=== PATIENT | female | born 1965 | race Caucasian/White ===

== ENCOUNTER → 2020-08-07 14:51 | Outpatient (CLI) | payer BC, SELFPAY ==
--- NOTE | ~2020-08-07 | MM_ITS ---
EXAMINATION: MM screening dyllan BI w isaura HISTORY: Screening TECHNIQUE: Craniocaudal and mediolateral oblique 3-D tomosynthesis images were obtained and synthetic 2-D images were generated. CAD analysis was submitted and interpreted. COMPARISON: Comparison to multiple prior studies sequentially, with oldest reviewed study dated 06/2015. BREAST PARENCHYMAL COMPOSITION: The breasts are heterogeneously dense, which may obscure small masses . FINDINGS: The right breast is stable without evidence for malignancy. There are multiple developing m asses in the left breast which are partially obscured by fibroglandular tissue. IMPRESSION: 1. Multiple developing left breast. 2. Additional mammographic views and possible breast ultrasound are recommended. BI-RADS Category 0: Incomplete: Needs additional imaging evaluation. Reviewed, dictated and finalized at location A. IMPRESSION: 1. Multiple developing left breast. 2. Additional mammographic views and possible breast ultrasound are recommended . BI-RADS Category 0: Incomplete: Needs additional imaging evaluation.
== END ==
PROVIDERS: Visit Provider Nurse Practitioner
DX: Z12.31 Encounter for screening mammogram for malignant neoplasm of breast (principal)
CPT/HCPCS: 77063; 77067

== ENCOUNTER → 2020-10-03 14:24 | Outpatient (CLI) | payer BC, SELFPAY ==
--- NOTE | ~2020-10-03 | MMUS_ITS ---
EXAMINATION: MM diagnostic dyllan LT w isaura, US breast LT complete HISTORY: Follow-up left breast masses TECHNIQUE: Additional 3-D tomosynthesis images of the left breast were performed and synthetic 2-D im ages were generated. CAD analysis was submitted and interpreted. High resolution complete left breast ultrasound was performed. COMPARISON: 08/07/2020 BREAST PARENCHYMAL COMPOSITION: The breasts are extremely dense, which lowers the sensitivity of mamm ography. FINDINGS: MAMMOGRAPHIC FINDINGS: There are multiple masses throughout the left breast. There is a spiculated density in the upper oute r quadrant of the left breast posteriorly adjacent to the pectoralis muscle. This mass measures appro ximately 9 mm maximum dimension. The remainder of the masses have a relatively circumscribed appearan ce would not obscured by surrounding tissue. There are no suspicious calcifications. ULTRASOUND: Left breast ultrasound: At 1:00, 9 cm from the nipple, there is an irregular shaped hypoechoic mass with antiparallel configu ration and posterior shadowing measuring 8 x 6 x 5 mm. No significant internal vascularity. There are multiple additional cyst scattered throughout the left breast, largest at 12:00, 1 cm from the nippl e measuring 2.9 cm greatest dimension. IMPRESSION: 1. Irregular shaped hypoechoic left breast mass at 1:00, 9 cm from the nipple corresponding to a spic ulated nodule seen on mammography. 2. Ultrasound-guided left breast biopsy recommended. BI-RADS category 4, suspicious findings. Reviewed, dictated and finalized at location A. RENTAL AGENT IMPRESSION: 1. Irregular shaped hypoechoic left breast mass at 1:00, 9 cm from the nipple c orresponding to a spiculated nodule seen on mammography. 2. Ultrasound-guided left breast biopsy recommended. BI-RADS category 4, suspicious findings.
== END ==
PROVIDERS: Visit Provider Obstetrics & Gynecology Gynecology
DX: R92.8 Other abnormal and inconclusive findings on diagnostic imaging of breast (principal)
CPT/HCPCS: 76641; 77061; 77065; G0279

== ENCOUNTER → 2021-02-13 12:17 | Outpatient (CLI) | payer BC, SELFPAY ==
--- NOTE | ~2021-02-13 | DEXA_ITS ---
Bone Density Report Name: Kylie Harmon Age: 55 Sex: Female Ethnicity: White Date of : 1965 Indication: monitoring treatment; parental hip fracture; cancer; postmenopausal Referring Provider: IAM MEJIA Study: Bone densitometry was performed. Exam Date: February 13, 2021 Accession number: [id number] Bone Density: Region BMD T-score Z-score Classification AP Spine (L1-L4) 1.053 0.1 1.2 Normal Femoral Neck (Left) 0.669 -1.6 -0.5 Osteopenia Total Hip (Left) 0.959 0.1 0.9 Normal Femoral Neck (Right) 0.664 -1.7 -0.5 Osteopenia Total Hip (Right) 0.952 0.1 0.8 Normal Total Hip Mean 0.956 0.1 0.9 Normal World Health Organization criteria for BMD impression classify patients as: Normal (T-score at or above -1.0), Osteopenia (T-score between -1.0 and -2.5), or Osteoporosis (T-score at or below -2.5). 10-year Fracture Risk: FRAX not reported because: Treated for osteoporosis Previous Exams: Region Exam Age BMD T-score BMD Change BMD Change Date g/cm2 vs Baseline vs Previous AP Spine(L1-L4) 02/13/2021 55 1.053 0.1 0.051* 0.037* 01/23/2018 52 1.016 -0.3 0.014 -0.016 06/05/2012 46 1.031 -0.1 0.029* 0.061* 03/16/2010 44 0.970 -0.7 -0.032* -0.032* 11/20/2007 42 1.002 -0.4 Total Hip(Left) 02/13/2021 55 0.959 0.1 0.006 -0.017 01/23/2018 52 0.976 0.3 0.023 0.039* 06/05/2012 46 0.937 0.0 -0.016 0.010 03/16/2010 44 0.927 -0.1 -0.026 -0.026 11/20/2007 42 0.953 0.1 Total Hip(Right) 02/13/2021 55 0.952 0.1 0.011 -0.059 01/23/2018 52 1.011 0.6 0.070* 0.057* 06/05/2012 46 0.953 0.1 0.013 0.039 03/16/2010 44 0.914 -0.2 -0.027 -0.027 11/20/2007 42 0.941 0.0 *Denotes significance at 95% confidence level, LSC for AP Spine = 0.022 g/cm2, LSC for Total Hip = 0.027 g/cm2 Clinical Information Provided by Patient: Parent has had a hip fracture Is being treated for osteoporosis Has used the following medications: HRT (i.e. estrogen/hormone therapy), Vitamin D, Calcium Has the following medical conditions: Cancer Patient maximum height was 63.0 Menopause Age: 35 Does not regularly consume dairy products Onset of menses at age 13 Number of children 2 Impressi
== END ==
PROVIDERS: Visit Provider Obstetrics & Gynecology Gynecology
DX: Z78.0 Asymptomatic menopausal state (principal); M85.852 Other specified disorders of bone density and structure, left thigh; M85.851 Other specified disorders of bone density and structure, right thigh
CPT/HCPCS: 77080

== ENCOUNTER 2021-09-03 01:25 | Day surgery (SDC) | payer BC, SELFPAY ==
[2021-08-23 11:02] VITALS: BMI 25.7
[2021-09-03 06:43] VITALS: BP 109/70; PULSE 78; RESP 16; TEMP 36.1; O2SAT 99
[2021-09-03] MEDS: LACTATED RINGERS 1,000 ML 150 ML IV CONT (06:52)
--- NOTE | 2021-09-03 07:23 | WPDGICN ---
Assessment and Plan Assessment and plan (1) Encounter for screening colonoscopy: Code(s): Z12.11 - Encounter for screening for malignant neoplasm of colon Status: Acute Assessment and Plan: Patient presents for screening colonoscopy. sHe appears to be at average risk for colon polyps. GI Consult Note Consult date/time: 09/03/21 07:23 HPI: Kylie Harmon is a 56 year old female Presents for screening colonoscopy. She has never had a prior colonoscopy. Patient reports that her current weight appetite and bowel movements are normal. She denies abdominal pain. She has had no bleeding. Family history is noncontributory. Patient reports that in November she had surgery for breast carcinoma and has subsequently undergone chemotherapy. She currently follows with oncology service. Review of Systems Review of Systems: All systems reviewed & are unremarkable except as noted in HPI and below PMFSH Family History Family History Father Family history of lung cancer Diabetes mellitus Heart disease Grandparent Family history of lung cancer Alzheimer disease Mother Depression Hearing loss Seizure Sibling Depression Arthritis Social History Social History Smoking status: Never smoker Alcohol intake: never Substance use: never Substance use type: does not use Living arrangements: with family Spiritual care concerns: No Meds Home Medications and Allergies Home Medications Medication Instructions Recorded Confirmed Type anastrozole 1 mg tablet 1 mg PO DAILY 03/06/21 09/03/21 History calcium carbonate-vitamin D3 1 tablet PO TID 08/23/21 09/03/21 History [Caltrate 600 plus D] cholecalciferol (vitamin D3) 25 mcg PO DAILY 08/23/21 09/03/21 History [Vitamin D3] Allergies Allergy/AdvReac Type Severity Reaction Status Date / Time No Known Allergies Allergy Verified 09/03/21 06:41 Vital Signs Vital Signs - 24 hr 09/03/21 06:43 Temperature 97.0 F L Pulse Rate 78 Respiratory Rate 16 Blood Pressure 109/70 Pulse Oximetry 99 Exam Narrative: Physical exam reveals patient to be alert. Vital signs stable. HEENT exam is unremarkable. Patient is anicteric. Lungs are clear to auscultation and percussion. Heart is without murmur or extra sounds. Abdominal exam bowel sounds present soft nontender with no organomegaly. Digital external rectal exam is normal.
--- NOTE | 2021-09-03 07:32 | P.PNAN_ITS ---
Anes - Initial Pre Proc Eval Procedure: Operation Date: 09/03/21 08:00 Proposed Procedures p Screening Colonoscopy - David Bolaños MD Date/Time: 09/03/21 07:32 Surgeon: David Bolaños MD Pre Op Diagnosis: neoplasm screening Patient Data Age: 56 Gender: F Height: 1.6 m Weight: 63.8 kg Last Vital Signs Temp 36.1 C L 09/03/21 06:43 Pulse 78 09/03/21 06:43 Resp 16 09/03/21 06:43 BP 109/70 09/03/21 06:43 Pulse Ox 99 09/03/21 06:43 Allergies Allergy/AdvReac Type Severity Reaction Status Date / Time No Known Allergies Allergy Verified 09/03/21 06:41 Home Medications Medication Instructions Recorded Confirmed Type anastrozole 1 mg tablet 1 mg PO DAILY 03/06/21 09/03/21 History calcium carbonate-vitamin D3 1 tablet PO TID 08/23/21 09/03/21 History [Caltrate 600 plus D] cholecalciferol (vitamin D3) 25 mcg PO DAILY 08/23/21 09/03/21 History [Vitamin D3] Patient hx anesthesia problems: none Family hx anesthesia problems: none Results Review: All pre-operative results and documents have been reviewed as part of the pre-operative evaluation. [facility] Family History Family History Father Family history of lung cancer Diabetes mellitus Heart disease Grandparent Family history of lung cancer Alzheimer disease Mother Depression Hearing loss Seizure Sibling Depression Arthritis Social History Social History Smoking status: Never smoker Alcohol intake: never Substance use: never Substance use type: does not use Living arrangements: with family Spiritual care concerns: No Anes - Eval Final PreProcedure Day of Procedure 09/03/21 07:32 Patient weight: normal Heart: regular rate and rhythm Lungs: clear to auscultation Airway: Mallampati scale class II Neurological: alert and oriented Last oral intake: >/= 8 hours ASA classification: III Anesthetic plan: proceed Anesthesia type and monitoring: general GIVS and standard monitoring Results Review: All pre-operative results and documents have been reviewed as part of the pre-operative evaluation. Informed Consent: The patient's anesthetic plan and its attendant risks and benefits were discussed with the patient/family/POA. Questions were solicited and answers provided to the satisfaction of the patient/family/POA.
[2021-09-03 08:19] VITALS: BP 92/56; PULSE 74; RESP 16; O2SAT 97
[2021-09-03 08:29] VITALS: BP 105/46; PULSE 72; RESP 16; O2SAT 97
[2021-09-03 08:38] VITALS: BP 86/56; PULSE 72; RESP 16; O2SAT 98
== END 2021-09-03 08:47 | disposition home or self-care (01) ==
PROVIDERS: PCP Family Medicine; Visit Provider Internal Medicine Gastroenterology
PROC: 0DJD8ZZ Inspection of Lower Intestinal Tract, Via Natural or Artificial Opening Endoscopic (ICD-10-PCS; CPT 45378; principal; 2021-09-03 08:00)
DX: Z12.11 Encounter for screening for malignant neoplasm of colon (principal); K64.8 Other hemorrhoids; C50.919 Malignant neoplasm of unspecified site of unspecified female breast; Z92.21 Personal history of antineoplastic chemotherapy
CPT/HCPCS: 45378; J2704; J7120

== ENCOUNTER 2022-12-14 09:00 | Outpatient (CLI) | payer BC, SELFPAY ==
[2022-12-14 09:14] LABS: Basophils Percent Auto 0.2 % (0.2-1.2); Eosinophils Absolute Auto 0.1 K/mm3 (0-0.3); Eosinophils Percent Auto 1.7 % (0-4.4); Hematocrit 44.7 % (37.0-47.0); Hemoglobin 14.3 g/dL (12.0-15.0); Immature Granulocyte Absolute 0.04 K/mm3 (0.00-0.031); Immature Granulocyte Percent A 0.5 % (0-0.5); Mean Corpuscular Volume 93.9 fl (80-100); Mean Platelet Volume 10.5 fl (7.4-10.4); Monocytes Absolute Auto 0.8 K/mm3 (0.1-0.6); Monocytes Percent Auto 10.2 % (2.6-8.5); Neutrophils Percent Auto 62.4 % (45.5-73.1); Platelet Count Result 251 k/mm3 (150-375); Red Blood Count 4.76 M/mm3 (4.2-5.4); Red Cell Distribution Width 12.7 % (11.5-14.5)
[2022-12-14 09:27] LABS: Alanine Aminotransferase 38 U/L (6-35); Albumin Level 4.6 g/dL (3.5-5.1); Alkaline Phosphatase 79 U/L (38-126); Anion Gap 4 mmol/L (8-16); Aspartate Amino Transferase 27 U/L (14-36); Bilirubin,Total 0.5 mg/dL (0.2-1.3); Blood Urea Nitrogen 19 mg/dL (7-17); Carbon Dioxide 30 mmol/L (22-30); Chloride 103 mmol/L (98-107); Cholesterol 192 mg/dL (0-200); Estimated Glomerular Filt Rate > 60; Glucose 101 mg/dL (65-110); HDL Direct 37 mg/dL; Potassium 4.3 mmol/L (3.4-5.0); Sodium 137 mmol/L (137-145); Triglycerides 147 mg/dL (<150)
[2022-12-14 09:38] LABS: LDL Cholesterol Direct 104 mg/dL
[2022-12-14 10:34] LABS: Hemoglobin A1C 5.8 % (<5.7)
== END 2022-12-14 09:01 | disposition home or self-care (01) ==
PROVIDERS: PCP Family Medicine; Visit Provider Family Medicine
DX: Z00.00 Encounter for general adult medical examination without abnormal findings (principal); Z79.899 Other long term (current) drug therapy; R73.03 Prediabetes; R73.01 Impaired fasting glucose; Z78.0 Asymptomatic menopausal state; C50.919 Malignant neoplasm of unspecified site of unspecified female breast
CPT/HCPCS: 36415; 80053; 80061; 83036; 84443; 85025

== ENCOUNTER → 2023-05-21 12:15 | Outpatient (CLI) | payer BC, SELFPAY ==
--- NOTE | ~2023-05-21 | DEXA_ITS ---
Bone Density Report Name: JUAN PARK Age: 57 Sex: Female Ethnicity: White Date of : 1965 Indication: monitoring treatment; parental hip fracture; cancer; postmenopausal Referring Provider: ELIZABETH BARROS Study: Bone densitometry was performed. Exam Date: May 21, 2023 Accession number: [id number] Bone Density: Region BMD T-score Z-score Classification AP Spine (L1-L4) 1.099 0.5 1.8 Normal Femoral Neck (Left) 0.660 -1.7 -0.5 Osteopenia Total Hip (Left) 0.923 -0.2 0.7 Normal Femoral Neck (Right) 0.682 -1.5 -0.3 Osteopenia Total Hip (Right) 0.933 -0.1 0.8 Normal Total Hip Mean 0.928 -0.2 0.8 Normal World Health Organization criteria for BMD impression classify patients as: Normal (T-score at or above -1.0), Osteopenia (T-score between -1.0 and -2.5), or Osteoporosis (T-score at or below -2.5). 10-year Fracture Risk: FRAX not reported because: Treated for osteoporosis Previous Exams: Region Exam Age BMD T-score BMD Change BMD Change Date g/cm2 vs Baseline vs Previous AP Spine(L1-L4) 05/21/2023 57 1.099 0.5 0.097* 0.046* 02/13/2021 55 1.053 0.1 0.051* 0.037* 01/23/2018 52 1.016 -0.3 0.014 -0.016 06/05/2012 46 1.031 -0.1 0.029* 0.061* 03/16/2010 44 0.970 -0.7 -0.032* -0.032* 11/20/2007 42 1.002 -0.4 Total Hip(Left) 05/21/2023 57 0.923 -0.2 -0.030* -0.036* 02/13/2021 55 0.959 0.1 0.006 -0.017 01/23/2018 52 0.976 0.3 0.023 0.039* 06/05/2012 46 0.937 0.0 -0.016 0.010 03/16/2010 44 0.927 -0.1 -0.026 -0.026 11/20/2007 42 0.953 0.1 Total Hip(Right) 05/21/2023 57 0.933 -0.1 -0.008 -0.019 02/13/2021 55 0.952 0.1 0.011 -0.059 01/23/2018 52 1.011 0.6 0.070* 0.057* 06/05/2012 46 0.953 0.1 0.013 0.039 03/16/2010 44 0.914 -0.2 -0.027 -0.027 11/20/2007 42 0.941 0.0 *Denotes significance at 95% confidence level, LSC for AP Spine = 0.022 g/cm2, LSC for Total Hip = 0.027 g/cm2 Clinical Information Provided by Patient: Parent has had a hip fracture Is being treated for osteoporosis Has used the following medications: Vitamin D, Calcium Has the following medical conditions: Cancer, Hormone rajiv Patient maximum height was 63.0 Menopause Age: 35 No regu
== END ==
DX: C50.412 Malignant neoplasm of upper-outer quadrant of left female breast (principal); Z17.0 Estrogen receptor positive status [ER+]; Z79.899 Other long term (current) drug therapy; Z79.811 Long term (current) use of aromatase inhibitors; M85.852 Other specified disorders of bone density and structure, left thigh; M85.851 Other specified disorders of bone density and structure, right thigh
CPT/HCPCS: 77080

== ENCOUNTER 2025-02-15 07:57 | Outpatient (CLI) | payer BC, SELFPAY ==
--- OUTSIDE RECORDS SUMMARY | 2025-02-15 08:06 | XMS_ITS | Clinical Summary ---
Author Organization [facility] Address [address] [place] [address] Care Team Providers Care Investigative Shopper Name Role Phone Unavailable Primary Care Provider Unavailabl e Source Comments [facility],non-owned Affiliates and Associated Physician Practices is amultiple site organization consisting of ambulatory clinics and hospital sitesin [place], [place], [place] and [place]. This disclosure is being madepursuant to the Care Everywhere program and may not contain all information available regarding this patient. Last updated 18.[facility] Allergies No known active allergies Medications * Be aware that medications may not be up to date on this document. Alwaysverify current medications with the patient. anastrozole (ARIMIDEX) 1 MG tablet 1 Active Calcium Carb-Cholecalcif maricel (CALCIUM CARBONATE-VITAMI N D3) 600-400 MG-UNIT Take 1 (one) tablet by mouth 2 times daily Active bupivacaine (MARCAINE) 0.5 % injectionIndicat ions:Chronic interstitial cystitis Instill 30 cc into bladder once. [facility] [id number] 30 mL 2 Active ID Now COVID-19 KIT TEST DIRECTED TODAY 2 Active hydrOXYzine HCl (Atarax) 25 MG tablet Take 1 (one) tablet by mouth at bedtime PATIENT NEEDS AN APPOINTMENT FOR FUTURE REFILLS 90 tablet 1 4 Active Active Problems No known active problems Immunizations Immunization Administration Dates Next Due Covid Pfizer primary monoval ent 12+ yr 0.3mL Purple cap 02/08/2021,01/11/2021 TDAP (7yrs+) 03/06/2021 Zoster Hzv Vacc Recombinant Inj Im 05/28/2021 Family History Medical History Relation Name Comments Diabetes; unknown type Father Depression Mother Relation Name Status Comments Father Mother Alive Social History Tobacco Use Types Packs/Day Years Used Date Smoking Tobacco: Never Smokeless Tobacco: Never Tobacco Cessation:Counseling Given: Not Answered Alcohol Use Standard Drinks/Week Comments Yes 0 (1 standard drink = 0.6 oz pur e alcohol) rarely Comments No Sex and Gender Information Value Date Recorded Sex Assigned at Not on file Legal Sex Female 5:24 PM CDT Gender Identity Not on file Sexual Orientation Not on file Last Filed Vital Signs Vital Sign Reading Time Taken Comments Blood Pressure 120/72 01/09/2023 3:35 PM CDT Pulse 105 05/29/2018 5:52 PM CDT Temperature 35.7 C (96.2 F) 01/09/2023 3:35 PM CDT Respiratory Rate 20 05/29/2018 5:52 PM CDT Oxygen Saturation 98% 05/29/2018 5:52 PM CDT Inhaled Oxygen Concentration - - Weight 73.5 kg (162 lb) 01/09/2023 3:35 PM CDT Height 160 cm (5' 3 ) 01/09/2023 3:35 PM CDT Body Mass Index 28.7 01/09/2023 3:35 PM CDT Plan of Treatment Health Maintenance Due Date Last Done Comments COLOGUARD (AGES 45-75) - COLON CA SCREENING 1965 COLON MONITORING 1965 COLONOSCOPY - COLON CA SCREENING 1964 CT COLONOGRAPHY - COLON CA SCREENING 1965 Colorectal Cancer Screening 1965 FIT - COLON CA SCREENING 1965 FLEX SIG - COLON CA SCREENING 1965 LIPID TESTING 1965 PAP SMEAR 1964 HIV SCREENING 1979 HEPATITIS C SCREENING 07/10/1982 PNEUMOCOCCAL VACCINE 50+ (1 of 1 - PCV) 2014 ZOSTER VACCINE (2 of 2) 07/23/2021 05/28/2021 SCREENING FOR DIABETES 09/18/2021 MAMMOGRAM 06/08/2023 06/08/2021 (Done Outside Per Report) COVID-19 VACCINE (3 - 2023-2 5 season) 2024 02/08/2021, 01/11/2021 DEPRESSION SCREENING 10/27/2024 INFLUENZA VACCINE (Season Ended) 2025 08/08/2022 DTAP/TDAP/TD VACCINES (2 - T d or Tdap) 03/06/2031 03/06/2021 Respiratory Syncytial Virus (RSV) Vaccine Pt: or over 60 yrs (1 - 1-dose 75+ series) 2039 HEPATITIS B VACCINE Aged Out No longe r eligible based on patient's age to complete this topic HIB VACCINE Aged Out No longer eligi ble based on patient's age to complete this topic HPV VACCINE Aged Out No longer eligi ble based on patient's age to complete this topic MENINGOCOCCAL (Group B) VACCINE SHARED DECISION-MAKING Aged Out No longer eligible based on patient's age to complete this topic MENINGOCOCCAL GROUPS A/C/Y/W VACCINE Aged Out No longer eligible based on patient's age to complete this topic Insurance ANTHEM ANTHEM ANTHEM ANTHEM ANTHEM ANTHEM ANTHEM ANTHEM ANTHEM ANTHEM ANTHEM ANTHEM ANTHEM ANTHEM ANTHEM ANTHEM ANTHEM ANTHEM ANTHEM ANTHEM ANTHEM ANTHEM ANTHEM ANTHEM ANTHEM ANTHEM ANTHEM ANTHEM ANTHEM ANTHEM ANTHEM ANTHEM ANTHEM ANTHEM ANTHEM ANTHEM ANTHEM ANTHEM ANTHEM ANTHEM ANTHEM ANTHEM ANTHEM ANTHEM ANTHEM ANTHEM ANTHEM ANTHEM ANTHEM ANTHEM ANTHEM ANTHEM ANTHEM ANTHEM ANTHEM ANTHEM ANTHEM ANTHEM ANTHEM ANTHEM ANTHEM ANTHEM ANTHEM ANTHEM ANTHEM ANTHEM ANTHEM ANTHEM ANTHEM ANTHEM ANTHEM ANTHEM ANTHEM ANTHEM ANTHEM ANTHEM ANTHEM ANTHEM ANTHEM ANTHEM ANTHEM ANTHEM ANTHEM ANTHEM ANTHEM ANTHEM ANTHEM ANTHEM ANTHEM ANTHEM ANTHEM ANTHEM ANTHEM ANTHEM ANTHEM
--- OUTSIDE RECORDS SUMMARY | 2025-02-15 08:06 | XMS_ITS | Clinical Summary ---
Author Organization [facility] Address [address] [place] [address] Care Team Providers Care Glass Cylinder Flanger Name Role Phone Teresa Ann MD Unavailable [phone] Liz Rivera MD Unavailable [phone] Blaze Khan MD PhD Unavailable [phone] Guadalupe Albright MD Unavailable [phone] Genesis John MD Primary Care Provider + Allergies No known active allergies Medications cholecalciferol (VITAMIN D-3) 25 mcg (1,000 unit) tablet Take 1 tablet (1,000 Units total) by mouth every morning Active calcium carbonate/vitam in D3 (CALTRATE 600 PLUS D ORAL) Take 1 tablet by mouth 2 (two) times a day Active hydrOXYzine (ATARAX) 25 mg tablet 02/09/2023 Active anastrozole (ARIMIDEX) 1 mg tabletIndicatio ns:Malignant neoplasm of upper-outer quadrant of left breast in female, estrogen receptor positive (HCC),MCC (current) use of aromatase inhibitors TAKE 1 TABLET BY MOUTH EVERY DAY 90 tablet 3 09/15/2024 Active famotidine (PEPCID) 20 mg tablet Take 1 tablet (20 mg total) by mouth daily 12/14/2024 Active metoprolol tartrate (LOPRESSOR) 25 mg immediate release tablet Take 0.5 tablets (12.5 mg total) by mouth 2 (two) times a day 01/13/2025 Active Active Problems Problem Noted Date Diagnosed Date Lymphedema - Left Breast 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 [address] [place] [address] 8 [place] [address] Liz Rivera MD Malignant neoplasm of upper-outer quadrant of left breast in female, estrogen receptor positive (HCC) (Primary Dx) 02/10/2025 2:30 PM CDT Lab [facility] - Lab Collection [facility] Floor [address] [place] [address] Malignant neoplasm of upper-outer quadrant of left breast in female, estrogen receptor positive (HCC) 02/10/2025 2:15 PM CDT Lab [facility] [address] [place] [address] Floor 5 [place] [address] Arrived 02/10/[address] [facility] [address] [place] [address] 8 [place] [address] Liz Rivera MD 02/09/[address] [facility] [address] [place] [address] Floor 8 [place] [address] Liz Rivera MD Malignant neoplasm of upper-outer quadrant of left breast in female, estrogen receptor positive (HCC) (Primary Dx) from Last 3 Months Immunizations Immunization Administration Dates Next Due Influenza, Quadrivalent, Radhika l Culture-based MDCK, Preservative Free, Antibiotic Free, Intramuscular 08/08/2022 Pfizer SARS-CoV-2 Monovalent Vaccination (12+ Yrs) PURPLE 02/08/2021,01/11/2021 Tdap 03/06/2021 ZOSTER Recombinant 05/28/2021,07/28/2020 Surgical History Surgery Date Site/Laterality Comments BREAST BIOPSY 10/31/2020 Left IDC ROTATOR CUFF REPAIR BREAST LUMPECTOMY 10/27/2012 - 10/26/2013 Left DCIS KNEE ARTHROSCOPY Right Meniscus repair DILATION AND CURETTAGE OF UTERUS took out a cyst Medical History Medical History Date Comments Breast cancer (HCC) left Family History Medical History Relation Name Comments Cancer Father Heart attack Father Heart disease Father Lung cancer Father Cancer Maternal Grandfather Lung cancer Maternal Grandfather Relation Name Status Comments Father Maternal Grandfather Mother Alive Social History Tobacco Use Types Packs/Day Years Used Date Smoking Tobacco: Never Smokeless Tobacco: Never Tobacco Cessation:Counseling Given: Not Answered Alcohol Use Standard Drinks/Week Comments Yes 0 (1 standard drink = 0.6 oz pur e alcohol) Very rare Comments No Sex and Gender Information Value Date Recorded Sex Assigned at Not on file Legal Sex Female 9:40 PM TOUR DIRECTOR Gender Identity Female 08/14/2021 11:34 AM CDT Sexual Orientation Straight 08/14/2021 11 :34 AM CDT Obstetrics History Last Filed Vital Signs Vital Sign Reading Time Taken Comments Blood Pressure 102/64 02/10/2025 2:26 PM CDT Pulse 63 02/10/2025 2:26 PM CDT Temperature 36.6 C (97.8 F) 02/10/2025 2:26 PM CDT Respiratory Rate 16 02/10/2025 2:26 PM CDT Oxygen Saturation 97% 02/10/2025 2:26 PM CDT Inhaled Oxygen Concentration - - Weight 66.2 kg (146 lb) 02/10/2025 2:26 PM CDT Height 157.5 cm (5' 2 ) 02/10/2025 2:21 PM CDT Body Mass Index 26.7 02/10/2025 2:21 PM CDT Plan of Treatment Health Maintenance Due Date Last Done Comments Cervical Cancer Screening 1965 Colon Cancer Screening-Colonoscopy 1965 Depression Screening 1965 Hepatitis C Screening 1965 Hepatitis B Screening 1982 Regular Well Visit/Exam 18-64 1982 Pneumococcal vaccine <65 (1 of 2 - PCV) 1983 Covid-19 Vaccine (3 - Pfizer risk series) 03/08/2021 02/08/2021, 01/11/2021 Influenza Vaccine (Season Ended) 2025 08/08/20 Breast Cancer Screening-Mammogram 07/15/2025 07/15/2024, 06/24/2023, 06/18/2022, Additional history exists DTaP/Tdap/Td Vaccine (2 - Td or Tdap) 03/06/2031 03/06/2021 Zoster Vaccine Completed 05/28/2021, 07/28/2020 Procedures Procedure Name Priority Date/Time Associated Diagnosis Comments EGFR Routine 02/10/2025 2:11 PM CDT Malignant neoplasm of upper-outer quadrant of left breast in female, estrogen receptor positive (HCC) COMPREHENSIVE METABOLIC PANEL Routine 02/10/2025 2:11 PM CDT Malignant neoplasm of upper-outer quadrant of left breast in female, estrogen receptor positive (HCC) VITAMIN D 25 HYDROXY Routine 02/10/2025 2:11 PM CDT Malignant neoplasm of upper-outer quadrant of left breast in female, estrogen receptor positive (HCC) DIAGNOSTIC MAMMOGRAM BILATERAL W TAISHA Schedule Routine, Read Routine (OP Routine) 07/15/2024 9:53 AM CDT Malignant neoplasm of upper-outer quadrant of left breast in female, estrogen receptor positive (HCC) from Last 3 Months or Most Recently Relevant to Health Maintenance Results * eGFR (02/10/2025 2:11 PM CDT) eGFR 74 >=60 mL/min/1. 73 m2 Comment: Interpretive Data Reference Interval Normal >/= 90 mL/min/1.73m2 Mildly decreased* 60 - 89 mL/min/1.73m2 Mildly to moderately decreased 45 - 59 mL/min/1.73m2 Moderately to severely decreased 30 - 44 mL/min/1.73m2 Severely decreased 15 - 29 mL/min/1.73m2 Kidney Failure < 15 mL/min/1.73m2 *Relative to young adult level Estimated glomerular filtration rate is determined by the 2020 CKD-EPI equation recommended by the National Kidney Foundation (A Unifying Approach to GFR Estimation: Recommendations of the NKF-ASK Task Force on Reassessing the Inclusion of Race in Diagnosing Kidney Disease, JASN 202). The CKD-EPI equation should not be used for patients with unstable renal function and has not been validated in children and those over 70. Current interpretive data was last reviewed 2021. Blood 02/10/2025 2:11 PM CDT 02/10/2025 2:15 PM CDT Liz Rivera MD LAB BLOOD ORDERABLES Final Result [facility] [place] [address] * Vitamin D 25 hydroxy (02/10/2025 2:11 PM CDT) Pathologist [facility] Vitamin D 25-OH 59 30 - 80 ng/mL Blood 02/10/2025 2:11 PM CDT 02/10/2025 2:15 PM CDT Liz Rivera MD LAB BLOOD ORDERABLES Final Result Performing Organization Address City/[facility]/ZIP Co de Phone Number [facility] [place] [address] * Comprehensive metabolic panel (02/10/2025 2:11 PM CDT) Pathologist [facility] Sodium 139 135 - 145 mmol/L Potassium, pl 4.2 3.3 - 4.9 mmol/L [facility] Chloride 102 97 - 110 mmol/L [facility] CO2 28 22 - 32 mmol/L [facility] Anion gap 9 2 - 15 mmol/L [facility] BUN 17 6 - 25 mg/dL [facility] Creatinine 0.89 0.60 - 1.10 mg/dL [facility] Glucose 98 70 - 199 mg/dL [facility] Comment: Interpretive Data Fasting glucose >/= 126 mg/dl is diagnostic for diabetes. Fasting is defined as no caloric intake for at least 8 hours. Fasting glucose between 100 mg/dl to 125 mg/dl is diagnostic of prediabetes. In a patient with classic symptoms of hyperglycemia or hyperglycemic crisis, a random glucose >/= 200 mg/dl is diagnostic for diabetes. In the absence of unequivocal hyperglycemia, results should be confirmed by repeat testing. The classification and Diagnosis of Diabetes Diabetes Care 2021; 46: S19-S40. Current interpretive data was last revised 2022. Calcium 9.6 8.5 - 10.3 mg/dL [facility] Bilirubin, total 0.4 0.1 - 1.2 mg/dL [facility] Protein, pl 7.6 6.5 - 8.5 g/dL [facility] Albumin 4.4 3.5 - 5.0 g/dL [facility] Alk phos 79 40 - 130 Units/L [facility] ALT 37 7 - 45 Units/L [facility] AST 24 10 - 45 Units/L [facility] Blood 02/10/2025 2:11 PM CDT 02/10/2025 2:15 PM CDT us Liz Rivera MD LAB BLOOD ORDERABLES Final Result [facility] [place] [address] * Diagnostic Mammogram Bilateral W Taisha (07/15/2024 9:53 AM CDT) Anatomical Region Laterality Modality Breast Bilateral Mammography 07/15/2024 10:0 2 AM CDT Impressions 07/15/2024 12:46 PM CDT 1. Stable left breast conservation therapy changes. 2. No mammographic evidence of malignancy within either breast. OVERALL FINAL ASSESSMENT: BI-RADS Category 2: Benign. RECOMMENDATION: Annual screening mammography is recommended. Dictated by: Yulissa Schneider M.D. The radiology attending physician has personally reviewed this study, and had reviewed and/or edited this written report and agrees with it. Electronically signed by: Regina Oneill M.D. Narrative 07/15/2024 12:46 PM CDT EXAMINATION: BILATERAL DIGITAL DIAGNOSTIC MAMMOGRAM INCLUDING CAD AND BILATERAL DIGITAL BREAST TOMOSYNTHESIS HISTORY: 59-year-old woman with history of left breast invasive ductal carcinoma status post breast conservation therapy in November 2020. She also has history of prior left lumpectomy in 2012 for ductal carcinoma in situ. COMPARISON: 06/24/2023 bilateral diagnostic mammogram and additional prior studies dating back to 2014. TECHNIQUE: Full field digital mammographic views of BOTH breasts were performed, including computer aided detection (CAD) and BILATERAL digital breast tomosynthesis (DBT). BREAST PARENCHYMAL COMPOSITION: The breasts are heterogeneously dense, which may obscure small masses. MAMMOGRAM FINDINGS: There are stable changes of left breast conservation therapy. No new suspicious findings within either breast. Procedure Note Regina Oneill MD - 07/15/2024 EXAMINATION: BILATERAL DIGITAL DIAGNOSTIC MAMMOGRAM INCLUDING CAD AND BILATERAL DIGITAL BREAST TOMOSYNTHESIS HISTORY: 59-year-old woman with history of left breast invasive ductal carcinoma status post breast conservation therapy in November 2020. She also has history of prior left lumpectomy in 2012 for ductal carcinoma in situ. COMPARISON: 06/24/2023 bilateral diagnostic mammogram and additional prior studies dating back to 2014. TECHNIQUE: Full field digital mammographic views of BOTH breasts were performed, including computer aided detection (CAD) and BILATERAL digital breast tomosynthesis (DBT). BREAST PARENCHYMAL COMPOSITION: The breasts are heterogeneously dense, which may obscure small masses. MAMMOGRAM FINDINGS: There are stable changes of left breast conservation therapy. No new suspicious findings within either breast. IMPRESSION: 1. Stable left breast conservation therapy changes. 2. No mammographic evidence of malignancy within either breast. OVERALL FINAL ASSESSMENT: BI-RADS Category 2: Benign. RECOMMENDATION: Annual screening mammography is recommended. Dictated by: Yulissa Schneider M.D. The radiology attending physician has personally reviewed this study, and had reviewed and/or edited this written report and agrees with it. Electronically signed by: Regina Oneill M.D. Guadalupe Albright MD IMG MAMMO PROCEDURES Fi nal Result from Last 3 Months or Most Recently Relevant to Health Maintenance Insurance * Guarantor: Kylie Harmon Account Type Relation to Patient Date of Phone Billing Address Personal/Family Self 1965 [phone] (Work) [address] [place] [phone] [employer] O[employer] OOS BL CHO[place]F [place] walk[place] ACCESS OOS Care Teams Glass Cylinder Flanger Relationship Specialty Start Date End Date Genesis John MD [address] [address] PCP - General Family Medicine 06/18/22 Teresa Ann MD [address] [facility] [address] [place], [place] [address] Referring Physician Gynecology 11/08/20 Liz Rivera MD 10 [facility] [address] [place] [address] Medical Oncologist/Clearance Representative Medical Oncology 12/21/20 Blaze Khan MD PhD [address] [place] [address] Radiation Oncologist Radiation Oncology 12/28/20 Guadalupe Albright MD [address] [address] Referring Physician Surgical Oncology 12/28/20
--- OUTSIDE RECORDS SUMMARY | 2025-02-15 08:06 | XMS_ITS ---
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/2021 At risk for bone density loss 02/15/2021 Malignant neoplasm of upper- outer quadrant of left breast in female, estrogen receptor positive 11/13/2020 Cancer Staging:Pathologic stage from 11/30/2020:Stage IA(pT1c, pN0(sn), cM0, G2, ER+, VA+, HER2-) - Signed by Blaze Khan MD PhD on 12/28/2020 Breast mass 10/31/2020 Current Treatment and Therapy Plans Zoledronic Acid (ZOMETA) Infusion* Plan Start Date:08/14/2021 Plan Provider:Liz Rivera MD Linked Problems Malignant neoplasm of upper- outer quadrant of left breast in female, estrogen receptor positive (HCC)At risk for bone density loss Treatment Medications No medications scheduled. Past Treatment and Therapy Plans Line Care Plan Name Start Date Discontinue Date Treatment Medications Discontinue Reason Plan Provider IV Maintenance Therapy Plan 02/07/2022 01/06/2024 No medications scheduled. Automatic discontinuation of dormant plans Liz Rivera MD Radiation Treatments * Course [id number]_202001/22/2021 - 02/19/2021 Treatment Period Energy Fraction Dose Fractions Total Dose Plans Planned LEFT BRST BST 02/13/2021 - 02/19/2021 207 5 / 1,036.2 LEFT BREAST 01/22/2021 - 02/12/2021 266 16 / 4,256 Reference Points Delivered LT BRST BST 02/13/2021 - 02/19/2021 1,036 lt brst dpv 01/22/2021 - 02/12/2021 4,256 Lifetime Dose Tracking * Chemical Lifetime Dose Automatic Entry Manual Entr y DLP 734 mGycm 734 mGycm 0 mGycm
--- OUTSIDE RECORDS SUMMARY | 2025-02-15 08:06 | XMS_ITS | Referral Summary ---
Author Organization [facility] Address [address] [place] [address] Care Team Providers Care Process Control Board Operator Name Role Phone Teresa Ann MD Unavailable Liz Rivera MD Unavailable Blaze Khan MD PhD Unavailable [phone] Guadalupe Albright MD Unavailable [phone] Genesis John MD Primary Care Provider + Encounters Date Type Department Care Team Description 02/10/2025 Telephone [facility] [address] [place] [phone] Liz Rivera MD 02/10/2025 2:30 PM CDT Lab [facility] - Lab Collection [address] [place] [address] Floor [address] [place] [address] Malignant neoplasm of upper-outer quadrant of left breast in female, estrogen receptor positive (HCC) 02/10/2025 2:15 PM CDT Lab [facility] [address] [place] [address] 5 [place] [address] Arrived 02/10/2025 3:00 PM CDT Office Visit [facility] [address] [place] [address] 8 [place] [phone] Liz Rivera MD Malignant neoplasm of upper-outer quadrant of left breast in female, estrogen receptor positive (HCC) (Primary Dx) 02/09/2025 Orders Only [facility] [address] [facility] [address] [place] [address] Liz Rivera MD Malignant neoplasm of upper-outer quadrant of left breast in female, estrogen receptor positive (HCC) (Primary Dx) from Last 3 Months Allergies No known active allergies Medications cholecalciferol [...] left breast in female, estrogen receptor positive (HCC),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 TAKE 1 [...] Diagnosed Date Lymphedema - Left Breast 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 05/14/2021 At risk for bone density loss 02/15/2021 Malignant neoplasm of upper- outer quadrant of left breast in female, estrogen receptor positive 11/13/2020 Cancer Staging:Pathologic stage from 11/30/2020:Stage IA(pT1c, pN0(sn), cM0, G2, ER+, TX+, HER2-) - Signed by Blaze Khan MD PhD on 12/28/2020 Breast mass 10/31/2020 Immunizations Immunization Administration Dates Next Due Influenza, Quadrivalent, Radhika l Culture-based MDCK, Preservative Free, Antibiotic Free, Intramuscular 08/08/2022 [facility] SARS-CoV-2 Monovalent Vaccination (12+ Yrs) PURPLE 02/08/2021,01/11/2021 Tdap 03/06/2021 ZOSTER Recombinant 05/28/2021,07/28/2020 Social History Tobacco Use Types Packs/Day Years Used Date Smoking Tobacco: Never Smokeless Tobacco: Never Tobacco Cessation:Counseling Given: Not Answered Alcohol Use Standard Drinks/Week Comments Yes 0 (1 standard drink = 0.6 oz pur e alcohol) Very rare Comments No Sex and Gender Information Value Date Recorded Sex Assigned at Not on file Legal Sex Female 9:40 PM TITLE I ASSISTANT Gender Identity Female 08/14/2021 11:34 AM CDT Sexual Orientation Straight 08/14/2021 11 :34 AM CDT Last Filed Vital Signs Vital Sign Reading [...] 02/10/2025 2:21 PM CDT Plan of Treatment Not on file Procedures Procedure Name Priority Date/Time Associated Diagnosis [...] of Race in Diagnosing Kidney Disease, JASN 2020). The CKD-EPI equation should not be used for patients with unstable renal function and has not been validated in children and those over 70. Current interpretive data was last reviewed 2021. Blood 02/10/2025 2:11 PM CDT 02/10/2025 2:15 PM CDT Liz Rivera MD LAB BLOOD ORDERABLES Final Result Performing Organization Address City/[facility]/ZIP Co de Phone Number [facility] Department [place] [address] * Vitamin D 25 hydroxy (02/10/2025 2:11 PM CDT) Vitamin D 25-OH 59 30 - 80 ng/mL Blood 02/10/2025 2:11 PM CDT 02/10/2025 2:15 PM CDT Liz Rivera MD LAB BLOOD ORDERABLES Final Result Performing Organization Address City/[facility]/ZIP Co de Phone Number [facility] Department [place] [address] * Comprehensive metabolic panel (02/10/2025 2:11 PM CDT) Sodium 139 135 - 145 mmol/L Potassium, pl 4.2 3.3 - 4.9 mmol/L [facility] Chloride 102 97 - 110 mmol/L [facility] CO2 28 22 - 32 mmol/L [facility] Anion gap 9 2 - 15 mmol/L [facility] BUN 17 6 - 25 mg/dL [facility] Creatinine 0.89 0.60 - 1.10 mg/dL [facility] Glucose 98 70 - 199 mg/dL [facility] Comment: Interpretive Data Fasting glucose >/= 126 [...] classification and Diagnosis of Diabetes Diabetes Care 202; 46: S19-S40. Current interpretive data was last revised 2022. Calcium 9.6 8.5 - 10.3 mg/dL [facility] Bilirubin, total 0.4 0.1 - 1.2 mg/dL [facility] Protein, pl 7.6 6.5 - 8.5 g/dL [facility] Albumin 4.4 3.5 - 5.0 g/dL [facility] Alk phos 79 40 - 130 Units/L [facility] ALT 37 7 - 45 Units/L [facility] AST 24 10 - 45 Units/L [facility] Blood 02/10/2025 2:11 PM CDT 02/10/2025 2:15 PM CDT us Liz Rivera MD LAB BLOOD ORDERABLES Final Result [facility] Department [place] [address] * Diagnostic Mammogram Bilateral W Taisha (07/15/2024 [...] Relevant to Health Maintenance Insurance * Guarantor: Faustino Kylie S Account Type Relation to Patient Date of Phone Billing Address Personal/Family Self 1965 [phone] x1 (Work) [address] [place], [place] [id number] [employer] BL CHOICE PRF [place]UE ACCESS OOS Care Teams Process Control Board Operator Relationship Specialty Start Date End Date Genesis John MD [address] [address] PCP - General Family Medicine 06/18/22 Teresa Ann MD [address] [facility] [address] [place], [place] [phone] Referring Physician Gynecology 11/08/20 Liz Rivera MD [address] [place] [address] [address] [place] [address] Medical Oncologist/Retail Store Associate Medical Oncology 12/21/20 Blaze Khan MD PhD [address] [place] [address] Radiation Oncologist Radiation Oncology 12/28/20 Guadalupe Albright MD [address] [address] Referring Physician Surgical Oncology 12/28/20
--- NOTE | 2025-02-15 08:29 | EST_ITS ---
Patient Info Name: Kylie Harmon Age: 59 years : 1965 Gender: Female Ht: 62 in Wt: 145 lbs BSA: 1.71 m2 HR: 57 bpm BP: 97 / 64 mmHg Exam Date: 02/15/2025 9:02 AM Exam Location: Echo Lab Patient Status: Outpatient Admit Date: 02/15/2025 Staff Ordering Physician: Genesis John MD Attending Provider: Genesis John MD Exercise Technologist: Radha Bey [facility] Exercise Physician: Teo Lewis DO Exam Type: CA stress test treadmill Study Info A treadmill exercise stress test was performed. Summary 1. 1. Negative Jamil exercise stress test for ischemic ST changes by ECG criteria. 2. 2. Good functional capacity, achieving 8.9 METs of workload. 3. 3. Appropriate HR response to exercise. 4. 4. Appropriate HR recovery at 1 minute post exercise. 5. 5. No imaging with stress testing. 6. 6. Patient informed of the above results. Protocol: Jamil Stress ECG Details Stage: REST Duration (min): 1 min : 2 sec Speed (mph): 0.0 Grade (%): 0 HR (bpm): 57 SBP (mmHg): 97 DBP (mmHg): 64 METS: --- Stage: REST Duration (min): 18 min : 12 sec Speed (mph): 0.0 Grade (%): 0 HR (bpm): 69 SBP (mmHg): 97 DBP (mmHg): 64 METS: --- Stage: STAGE 1 Duration (min): 1 min : 0 sec Speed (mph): 1.7 Grade (%): 10 HR (bpm): 97 SBP (mmHg): 97 DBP (mmHg): 64 METS: --- Stage: STAGE 1 Duration (min): 2 min : 0 sec Speed (mph): 1.7 Grade (%): 10 HR (bpm): 105 SBP (mmHg): 97 DBP (mmHg): 64 METS: --- Stage: STAGE 1 Duration (min): 3 min : 0 sec Speed (mph): 1.7 Grade (%): 10 HR (bpm): 110 SBP (mmHg): 103 DBP (mmHg): 65 METS: --- Stage: STAGE 2 Duration (min): 1 min : 0 sec Speed (mph): 2.5 Grade (%): 12 HR (bpm): 122 SBP (mmHg): 103 DBP (mmHg): 65 METS: --- Stage: STAGE 2 Duration (min): 2 min : 0 sec Speed (mph): 2.5 Grade (%): 12 HR (bpm): 131 SBP (mmHg): 111 DBP (mmHg): 65 METS: --- Stage: STAGE 2 Duration (min): 3 min : 0 sec Speed (mph): 2.5 Grade (%): 12 HR (bpm): 139 SBP (mmHg): 111 DBP (mmHg): 65 METS: --- Stage: STAGE 3 Duration (min): 1 min : 0 sec Speed (mph): 3.4 Grade (%): 14 HR (bpm): 149 SBP (mmHg): 151 DBP (mmHg): 67 METS: --- Stage: STAGE 3 Duration (min): 1 min : 0 sec Speed (mph): 3.4 Grade (%): 14 HR (bpm): 149 SBP (mmHg): 151 DBP (mmHg): 67 METS: --- Stage: RECOVERY Duration (min): 0 min : 59 sec Speed (mph): 0.0 Grade (%): 0 HR (bpm): 118 SBP (mmHg): 151 DBP (mmHg): 67 METS: --- Stage: RECOVERY Duration (min): 1 min : 59 sec Speed (mph): 0.0 Grade (%): 0 HR (bpm): 102 SBP (mmHg): 151 DBP (mmHg): 67 METS: --- Stage: RECOVERY Duration (min): 2 min : 59 sec Speed (mph): 0.0 Grade (%): 0 HR (bpm): 81 SBP (mmHg): 99 DBP (mmHg): 63 METS: --- Stage: RECOVERY Duration (min): 3 min : 3 sec Speed (mph): 0.0 Grade (%): 0 HR (bpm): 79 SBP (mmHg): 99 DBP (mmHg): 63 METS: --- Rest HR: 69 bpm Peak HR: 150 bpm Rest Sys BP: 97 mmHg Peak Sys BP: 151 mmHg Max Pred HR: 160 bpm % Max Pred HR: 94 % Target HR: 136 bpm Max RPP: 22,650 bpm*mmHg Orellana Score: 4 Termination Reason: Reached target heart rate or workload Cardiac Symptoms: Shortness of breath Max ST Seg Deviation: -0.70 mm Total Time: 7 min : 0 sec Rest Shah BP: 64 mmHg Peak Shah BP: 67 mmHg Angina Score: None Total METS: 8.9 Resting ECG Sinus rhythm. Stress ECG No ST changes. Arrhythmias None. Report Signatures
== END 2025-02-15 07:58 | disposition home or self-care (01) ==
PROVIDERS: PCP Family Medicine; Visit Provider Family Medicine
DX: R07.89 Other chest pain (principal)
CPT/HCPCS: 93017

== ENCOUNTER 2025-05-23 14:22 | Outpatient (CLI) | payer BC, SELFPAY ==
--- NOTE | ~2025-05-23 | DEXA_ITS ---
Bone Density Report Name: JUAN PARK Age: 59 Sex: Female Ethnicity: White Date of : 1965 Indication: postmenopausal; screening for osteoporosis; parental hip fracture; Referring Provider: STEVAN BAUMANN Study: Bone densitometry was performed. Exam Date: May 23, 2025 Accession number: [id number] Bone Density: Region BMD T-score Z-score Classification AP Spine(L1-L4) 1.021 -0.2 1.2 Normal Femoral Neck (Left) 0.673 -1.6 -0.3 Osteopenia Total Hip (Left) 0.899 -0.4 0.6 Normal Femoral Neck (Right) 0.638 -1.9 -0.6 Osteopenia Total Hip (Right) 0.928 -0.1 0.9 Normal Total Hip Mean 0.913 -0.3 0.8 Normal World Health Organization criteria for BMD impression classify patients as: Normal (T-score at or above -1.0), Osteopenia (T-score between -1.0 and -2.5), or Osteoporosis (T-score at or below -2.5). 10-year Fracture Risk(1): Major Osteoporotic Fracture 18% Hip Fracture 1.1% Reported Risk Factors: [place] (), Neck BMD=0.638, BMI=25.9, parental fracture (1) FRAX(R) Version 3.08. Fracture probability calculated for an untreated patient. Fracture probability may be lower if the patient has received treatment. Previous Exams: -- Region Exam Age BMD T-score BMD Change BMD Change Date g/cm2 vs Baseline vs Previous -- AP Spine (L1-L4) 05/23/2025 59 1.021 -0.2 1.9% -7.1%* 05/21/2023 57 1.099 0.5 9.7%* 4.4%* 02/13/2021 55 1.053 0.1 5.1%* 3.7%* 01/23/2018 52 1.016 -0.3 1.3% -1.5% 06/05/2012 46 1.031 -0.1 2.9%* 6.3%* 03/16/2010 44 0.970 -0.7 -3.2%* -3.2%* 11/20/2007 42 1.002 -0.4 Total Hip(Left) 05/23/2025 59 0.899 -0.4 -5.7%* -2.6% 05/21/2023 57 0.923 -0.2 -3.1%* -3.8%* 02/13/2021 55 0.959 0.1 0.6% -1.7% 01/23/2018 52 0.976 0.3 2.4% 4.2%* 06/05/2012 46 0.937 0.0 -1.7% 1.0% 03/16/2010 44 0.927 -0.1 -2.7% -2.7% 11/20/2007 42 0.953 0.1 Total Hip(Right) 05/23/2025 59 0.928 -0.1 -1.4%# -0.6% 05/21/2023 57 0.933 -0.1 -0.8%# -2.0% 02/13/2021 55 0.952 0.1 1.2%# -5.9%# 01/23/2018 52 1.011 0.6 7.5%* 6.0%* 06/05/2012 46 0.953 0.1 1.4% 4.3%# 03/16/2010 44 0.914 -0.2 -2.8%# -2.8%# 11/20/2007 42 0.941 0.0 -- *Denotes significance at 95% confidence level, LSC for AP Spine = 0.022 g/cm2, LSC for Total Hip = 0.027 g/cm2 # Denotes dissimilar scan types or analysis methods Clinical Information Provided by Patient: Parent has had a hip fracture Has used the following medications: Fosamax (i.e. alendronate), Vitamin D, Calcium Patient maximum height was 63 Menopause Age: 35 No regular weight bearing exercise Does not regularly consume dairy products Onset of menses at age 14 Number of children 2 Impression: The patient has low bone mass, based on the Right Femoral Neck T-score. The patient has an estimated ten-year risk of hip fracture of 1.1% and an estimated ten-year risk of major fracture of 18%, based on the WHO FRAX algorithm. The patient has risk factors, including: parental hip fracture. The BMD for the AP Spine (L1-L4) decreased, changing by -7.1% since the last DXA exam. Discussion: BONE DENSITY IS LOW AT ONE OR MORE SKELETAL SITES. This patient's lowest T-score is low at one or more skeletal sites. It meets the World Health Organization's (WHO) criteria for ?low bone mass? (T-score between -1.0 and -2.5). The patient's 10-year risk of fracture as calculated by FRAX is less than the threshold where pharmacological therapy is recommended by the National Osteoporosis Foundation (NOF). However, all treatment decisions require clinical judgment and consideration of individual patient factors, including patient preferences, comorbidities, previous drug use, risk factors not captured in the FRAX model (e.g., frailty, falls, vitamin D deficiency, increased bone turnover, interval significant decline in bone density) and possible under or overestimation of fracture risk by FRAX. The patient should follow a healthful lifestyle (good nutrition with adequate calcium and vitamin D, and appropriate weight-bearing exercise). Follow-Up: Consider repeating this study in 2 years to reassess this patient's status, or sooner if there is some new clinical indication. Reported by: MATT on 05/23/2025 2:40:00 PM. Reviewed, dictated and finalized at location A.
== END 2025-05-23 14:23 | disposition home or self-care (01) ==
LOC: MICIMG 14:23
PROVIDERS: PCP Family Medicine; Visit Provider Family Medicine
DX: M81.0 Age-related osteoporosis without current pathological fracture (principal); Z13.820 Encounter for screening for osteoporosis; M85.852 Other specified disorders of bone density and structure, left thigh; M85.851 Other specified disorders of bone density and structure, right thigh
CPT/HCPCS: 77080